=== PATIENT | female | born 1985 | race Hispanic/Latino ===

== ENCOUNTER 2020-05-02 08:09 | Day surgery (SDC) | payer OTHER ==
[2020-05-01 11:57] LABS: Hematocrit 35.5 % (30.3-42.9); Hemoglobin 11.4 gm/dl (10.1-14.3); Mean Corpuscular HGB Conc 32 % (30-34); Mean Corpuscular Volume 74 fl (79-97); Platelet Count 335 K/mm3 (140-440); Red Blood Count 4.81 M/mm3 (3.65-5.03); Red Cell Distribution Width 19.3 % (13.2-15.2)
--- NOTE | 2020-05-01 18:06 | History and Physical Report ---
History of Present Illness Date of examination: 04/27/20 Chief complaint: Sterilization by bilateral salpingectomy History of present illness: Past History : 5 Term Births: 5 Premature Births: 0 Living Children: 5 Para: 4 Mult. Births: 0 Prev : 0 Prev. attempt? 0 Aborta: 0 Elect. Ab: 0 Spont. Ab: 0 Ectopics: 0 # 1 Delivery date: 2003 Weeks Gestation: 38 labor: no Delivery type: Anesthesia type: epidural Sex: Male weight: 7-13 Comments: IOL for ?cholestasis # 2 Delivery date: 2007 Weeks Gestation: 40 labor: no Delivery type: Anesthesia type: epidural Delivery location: [facility] Infant Sex: Male weight: 8-2 # 3 Delivery date: 07/25/2012 Weeks Gestation: 41 Delivery type: Vaginal Hours of labor: 12 Anesthesia type: epidural Delivery location: [facility] Infant Sex: male weight: 9.94 Name: Nile Comments: Induction for postdates # 4 Delivery date: 07/08/2014 Weeks Gestation: 40 Delivery type: Vaginal Delivery location: [facility] Sex: male weight: 8.56 # 5 Delivery date: 03/09/2020 Weeks Gestation: 40 Delivery type: Vaginal Anesthesia type: epidural Delivery location: [facility] Sex: female weight: 9.50 Name: Meeta GERONTOLOGICAL NURSE PRACTITIONER History Uterine Surgery (not C/S): negative Operations: Cholecystectomy 2003 Adenoidectomy Abnormal PAP: negative Uterine Anomaly: negative PATRICK Exposure: negative Infertility: negative Infection History HIV Risk Eval: no TB exposure: no Personal hx. of genital herpes: no Partner hx. of genital herpes: no Hx of STD: none Active Medications (reviewed today): FAMOTIDINE TABLET (FAMOTIDINE TABS) PLUS 27-1 MG ORAL TABLET ( VIT-FE FUMARATE-FA) 1 tablet by mouth daily Current Allergies (reviewed today): No known allergies Past Medical History: G E [facility] Past Surgical History: Reviewed history from 12/16/2013 and no changes required: Cholecystectomy 2004 Adenoidectomy Social History: Reviewed history from 09/21/2019 and no changes required: Patient is Smoking History: Patient is a former smoker. Risk Factors: Smoked Tobacco Use: Former smoker Cigarettes: Yes Year quit: 2017 Years Since Last Quit: 3 Smokeless Tobacco Use: Never Passive smoke exposure: no Drug use: no Alcohol use: yes Drinks per day: social Exercise: no Seatbelt use: 100 % PAP Smear History: Date of Last PAP Smear: 09/21/2019 Review of Systems General Denies fever, chills, sweats, anorexia, fatigue, weakness, malaise, weight loss and sleep disorder. Denies vaginal discharge, incontinence, dysuria, hematuria, urinary frequency, amenorrhea, menorrhagia, abnormal vaginal bleeding, pelvic pain, toby josué sores, decreased libido, painful periods, painful sex, urinary urgency, hot flashes, vaginal dryness, vaginal itching and vaginal odor. CV Denies chest pains, palpitations, syncope, dyspnea on exertion, orthopnea, PND and peripheral edema. Resp Denies cough, dyspnea at rest, excessive sputum, hemoptysis, wheezing and pleurisy. GI Denies nausea, vomiting, diarrhea, constipation, change in bowel habits, abdominal pain, melena, hematochezia, jaundice, gas/bloating, indigestion /heartburn, dysphagia and odynophagia. Endo Denies cold intolerance, heat intolerance, polydipsia, polyphagia, polyuria and unusual weight change. Breast Denies left breast lump, right breast lump, nipple discharge, bloody discharge from nipple, breast pain, abnormal mammogram and breast enlargement. MS Denies back pain, joint pain, joint swelling, muscle cramps, muscle weakness, stiffness, arthritis, sciatica, restless legs, leg pain at night and leg pain with exertion. Derm Denies rash, itching, dryness and suspicious lesions. Neuro Denies paralysis, paresthesias, headache, seizures, tremors, vertigo, transient blindness, frequent falls, frequent headaches and difficulty walking. Psych Denies depression, anxiety, irritability and mood swings. Eyes Denies blurring, diplopia, irritation, discharge, vision loss, eye pain and photophobia. ENT Denies earache, ear discharge, tinnitus, decreased hearing, nasal congestion, nosebleeds, sore throat and hoarseness. Allergy Denies urticaria, allergic rash, hay fever and recurrent infections. Heme Denies abnormal bruising, bleeding and enlarged lymph nodes. Physical Exam Appearance: well developed, well nourished, no acute distress Other Exams Lungs: no rales, rhonchi, or wheezes Heart: S1, S2, no murmur, rub, or gallop Genitourinary Exam Uterus: deferred for EUA Impression & Recommendations: Problem # 1: Sterilization (ICD-V25.2) ([id number])She desires bilateral salpingectomy for sterilization. Risks of regret emphasized. Permanent and irreversible condition explained to patient. Pt verbalized understanding. Consent reviewed and signed. Pre- operative instructions sheets given. The risks and alternatives to this surgery were reviewed with the patient. Infection precautions reviewed, pt to call for any signs or symptoms of infection. Patient given ample opportunity to have all her questions answered before signing informed consent. Patient informed of possible bleeding. 1%failure rate emphasized Possible laparotomy explained to patient. She was informed of possible bleeding, infection, injury to bowel, bladder, ureters or other adjacent organs. The patient was instructed/informed the following: The normal length of hospital stay for this procedure. Nothing to eat or drink after midnight the evening prior to surgery. Clear liquids the day before surgery. Fleets enema the day prior to surgery. Pre-op instruction sheets given. Wound care instructions given. Infection precautions reviewed, patient to call for any signs or symptoms of infection. The usual discomforts associated with this procedure were detailed. Proper use of pain medicines was reviewed. Patient was given ample opportunity to have all her questions answered before signing informed consent. Medications Added to Medication List This Visit: 1) Famotidine Tablet (Famotidine tabs) Medications and Allergies Allergies Allergy/AdvReac Type Severity Reaction Status Date / Time No Known Allergies Allergy Unverified 04/26/20 17:32 Home Medications Medication Instructions Recorded Confirmed Last Taken Type Calcium Carbonate [Tums] 400 mg PO Q4-6H PRN 07/08/14 04/26/20 07/08/14 19:30 History 400 mg Vits96/Iron Fum/Folic 1 tab PO DAILY 07/08/14 04/26/20 07/07/14 10:00 History [ Tablet] 1 tab Famotidine [Acid Controller] 20 mg PO DAILY PRN 04/26/20 04/26/20 Unknown History Active Meds: Active Medications Celecoxib (Celebrex) 200 mg PO PREOP NR Stop: 05/02/20 23:59 Gabapentin (Gabapentin) 600 mg PO PREOP NR Stop: 05/02/20 23:59 Lactated Ringer's (Lactated Ringers) 1,000 mls @ 100 mls/hr IV DIRECT ROBB Stop: 05/02/20 23:59 Cefazolin Sodium (Ancef/Sterile Water 2 Gm/20 Ml) 2 gm in 20 mls @ 80 mls/hr IV PREOP NR; Protocol Stop: 05/02/20 23:59 Magnesium Oxide (Mag-Ox) 400 mg PO PREOP ROBB Stop: 05/02/20 23:59 Midazolam HCl (Versed) 2 mg IV PREOP NR Stop: 05/02/20 23:59 Results - Labs 05/01/20 10:55 Abnormal lab results 05/01/20 Range/Units 10:55 MCV 74 L (79-97) fl MCH 24 L (28-32) pg RDW 19.3 H (13.2-15.2) % Assessment and Plan - Patient Problems (1) Sterilization Status: Acute
[~2020-05-02 08:09] MED LIST: CELECOXIB 200 MG CAP PO NR; GABAPENTIN 300 MG CAP PO NR; LACTATED RINGERS 1,000 ML IV SCH; MAGNESIUM OXIDE 400 MG TAB PO SCH; MIDAZOLAM 2 MG/2 ML INJ IV NR; ceFAZolin/Water 2 GM/20 ML 2 GM/20 ML SYRINGE IV NR
--- NOTE | 2020-05-02 09:01 | Anesthesia Consultation ---
Anesthesia Consult and Med Hx Date of service: 05/02/20 - Airway Anesthetic Teeth Evaluation: Good ROM Head & Neck: Adequate Mental/Hyoid Distance: Adequate Mallampati Class: Class I Intubation Access Assessment: Good - Pulmonary Exam CTA: Yes - Cardiac Exam Cardiac Exam: RRR - Pre-Operative Health Status ASA Pre-Surgery Classification: ASA2 Proposed Anesthetic Plan: General - Pulmonary Hx Smoking: Yes (former) Hx Respiratory Symptoms: No - Cardiovascular System Hx Hypertension: No Hx Heart Attack/AMI: No Hx Percutaneous Transluminal Coronary Angioplasty (PTCA): No - Central Nervous System CVA: No - Gastrointestinal Hx Gastroesophageal Reflux Disease: Yes (well controlled) - Endocrine Hx Renal Disease: No Hx Liver Disease: No Hx Insulin Dependent Diabetes: No Hx Non-Insulin Dependent Diabetes: No Hx Thyroid Disease: No - Additional Comments Anesthesia Medical History Comments: No hx anesthetic complications.
--- NOTE | 2020-05-02 09:01 | Anesthesia Day of Surgery ---
Anesthesia Day of Surgery - Day of Surgery Patient Examined: Yes Patient H&P Reviewed: Yes Patient is NPO: Yes
[2020-05-02] MEDS ORDERED: BUPIVACAINE/PF (0.5%) 5 MG/1 ML 30 ML VIAL INFILTRATI ONE ×2 (12:16→13:15)
[2020-05-02] MEDS ORDERED: fentaNYL 100 MCG/2 ML INJ ONE (12:17)
[2020-05-02] MEDS ORDERED: ROCURONIUM 50 MG/5 ML INJ IV ONE (12:17)
[2020-05-02] MEDS ORDERED: LIDOCAINE MPF (2%) 20 MG/1 ML VIAL 5 ML ONE (12:17)
[2020-05-02] MEDS ORDERED: propofoL 200 MG/20 ML VIAL IV ONE (12:17)
[2020-05-02] MEDS ORDERED: ONDANSETRON 4 MG/2 ML INJ ONE (12:17)
[2020-05-02] MEDS ORDERED: dexAMETHasone 20 MG/5 ML VIAL ONE (13:00)
[2020-05-02] MEDS ORDERED: NEOSTIGMINE 10MG/10 ML INJ MDV ONE (13:08)
[2020-05-02] MEDS ORDERED: GLYCOPYRROLATE 0.4 MG/2 ML INJ ONE (13:08)
[2020-05-02] MEDS ORDERED: LACTATED RINGERS 1,000 ML ONE (13:08)
[2020-05-02] MEDS ORDERED: SODIUM CHLORIDE 0.9% IRR 1,500 ML BOTTLE IR ONE (13:15)
--- NOTE | 2020-05-02 13:40 | Operative Report ---
Operative Report Operative Report: Date of operation: 05/02/2020 Pre-operative diagnosis: 1. Desires sterilization by bilateral salp ingectomy Post-operative diagnosis: 1. Desires sterilization by bilateral salpingectomy Procedure name(s): 1. Laparoscopic bilateral salpingectomy for sterilization Surgeon: Cherrie Uriostegui MD Hand Coper: [] Anesthesia: General endotracheal anesthesia Anesthesiologist: Dr. Antoinette Montgomery EBL: Minimal Urine output: 100 mL of clear yellow urine Findings: Grossly normal uterus tubes and ovaries Procedure: After risks, benefits, complications, consequences and alternatives for this procedure were discussed with patient and she voiced understanding desire to proceed, the patient was taken to the operating suite and placed in the supine position. General anesthesia was induced. She placed in dorsolithotomy position and prepped and draped in the usual sterile fashion. Timeout was performed. The bladder was drained of approximately 100 cc of clear yellow urine. An operative speculum was introduced into the vagina, and the anterior lip of the cervix was grasped with an Allis clamp. The uterus was sounded to 10 cm. The cervix was progressively dilated to allow the Sargis uterine manipulator to be placed without difficulty. The speculum and clamp were removed. Sterile gloves were placed and attention was turned to the abdomen. An supraumbilical incision was made and a 5 mm bladeless Optiview trocar was placed with laparoscope and camera inserted. No obvious bowel, bladder, ureteral or major vascular injury was noted. The abdomen was insufflated. She was then placed in Trendelenburg position. Grossly normal uterus tubes and ovaries were noted. Then an incision was made approximately 2 cm superior to the symphysis pubis in the midline. An 8 mm bladeless trocar was introduced under the direct visualization. Again no obvious bowel, bladder, ureteral or major vascular injury was noted. The uterus was elevated, and using the 5 mm [place] LigaSure device bilateral salpingectomy was performed in the usual fashion. Each tube was removed through the 8 mm trocar. Attention was turned back to the adnexa when hemostasis was noted bilaterally. The CO2 was released under direct visualization to ensure hemostasis. Hemostasis was noted. At which point the procedure was ended. The 8 mm trochars removed under direct visualization hemostasis was noted. The CO2 was then released. The 5 mm trocar was removed. The incisions were infused with half percent Marcaine without epinephrine. The incisions were reapproximated using 4-0 Vicryl in a subcuticular manner. Hemostasis was noted. Attention was turned to the vagina where the Sargis uterine manipulator was removed. Hemostasis was noted. Patient was taken to recovery room in stable condition.
--- NOTE | 2020-05-02 13:44 | Discharge Summary ---
Providers - Providers Date of discharge: 05/02/20 Attending physician: KYLEIGH GORDON Primary care physician: [facility] Hospitalization Condition: Good Procedures: lsc (B) salpingectomy for sterilization Hospital course: Normal Disposition: DC-01 TO HOME OR SELFCARE - Discharge Diagnoses (1) Sterilization Status: Acute Core Measure Documentation - Palliative Care Palliative Care/ Comfort Measures: Not Applicable - Core Measures Any of the following diagnoses?: none Exam - Constitutional Vitals: Temp Pulse Resp BP Pulse Ox 97.9 F 84 22 119/77 96 05/02/20 09:20 05/02/20 09:20 05/02/20 09:20 05/02/20 09:05/02/20 09:20 General appearance: Present: no acute distress - Respiratory Respiratory effort: normal - Cardiovascular Rhythm: regular - Abdominal General gastrointestinal: Present: soft Plan Activity: other (No sex x1week, no driving x24 hours. Ambulate a mile on your property daily) Weight Bearing Status: Full Weight Bearing Diet: regular (Drinl ~100oz water a day, void frequently) Wound: open to air, keep clean and dry Special Instructions: no heavy lifting (Greater than 25lbs) Follow up with: PRIMARY CARE, [Primary Care Provider] - 7 Days KYLEIGH GORDON MD [Staff Physician] - (As scheduled) Prescriptions: Ibuprofen [Motrin 800 MG tab] 800 mg PO TID PRN #30 tablet PRN Reason: Pain oxyCODONE /ACETAMINOPHEN [Percocet 5/325 mg] 1 - 2 tab PO Q6HR PRN #7 tablet PRN Reason: Pain
[2020-05-02] MEDS: HYDROmorphone 1 MG/1 ML INJ IV PRN ×2 (13:45→14:00)
--- NOTE | 2020-05-02 15:41 | Post Anesthesia Evaluation ---
- Post Anesthesia Evaluation Patient Participated: Yes Airway Patent: Yes Stable Respiratory Function: Yes Nausea/Vomiting: No Temp > 96.8F: Yes Pain Manageable: Yes Adequeate Hydration: Yes Anesthesia Complications: No
[2020-05-02 16:07] VITALS: BP 120/54
== END 2020-05-02 08:10 | disposition home or self-care (01) ==
LOC: OR 08:09
PROVIDERS: ATTEND Obstetrics & Gynecology
DX: Z30.2 Encounter for sterilization (principal); Z20.828 Contact with and (suspected) exposure to other viral communicable diseases; D64.9 Anemia, unspecified; K21.9 Gastro-esophageal reflux disease without esophagitis; G43.909 Migraine, unspecified, not intractable, without status migrainosus; Z79.899 Other long term (current) drug therapy; Z87.891 Personal history of nicotine dependence; Z98.890 Other specified postprocedural states; Z82.49 Family history of ischemic heart disease and other diseases of the circulatory system
CPT/HCPCS: 36415; 58661; 81025; 85027; 86850; 86900; 86901; 88302; J0690; J1100; J1170; J2250; J2405; J2704; J2710; J3010; J7120; U0003